=== PATIENT | female | born 1990 | race Caucasian/White ===

== ENCOUNTER 2017-10-03 10:35 | Emergency (ER) | payer OTHER ==
--- NOTE | 2017-10-03 11:03 | UC ---
Throat Pain/Nasal Srinivas HPI - HPI Summary HPI Summary: 27 YO F WITH 8+ DAYS OF URI SX NOW WITH FRONTAL DESAI/FACIAL PAIN AND PRESSURE. YELLOW/GREEN RHINORRHEA. NO RECENT FEVER. POSITIVE B/L EAR PRESSURE. - History of Current Complaint Chief Complaint: UCRespiratory Stated Complaint: UPPER RESP COMP Time Seen by Provider: 10/03/17 10:55 Hx Obtained From: Patient Hx Last Menstrual Period: DOES NOT HAVE REG PERIODS HAS MIRENA IUD Onset/Duration: Lasting Days Severity: Moderate Cough: Nonproductive Associated Signs & Symptoms: Negative: Wheezing - Epiglottits Risk Factors Epiglottis Risk Factors: Negative - Allergies/Home Medications Allergies/Adverse Reactions: Allergies Allergy/AdvReac Type Severity Reaction Status Date / Time latex Allergy Rash Verified 10/03/17 11:00 Home Medications: Home Medications Etonogestrel [Nexplanon] 1 imp ONCE 10/03/17 [History Confirmed 10/03/17] PMH/Surg Hx/FS Hx/Imm Hx Previously Healthy: Yes - Surgical History Surgical History: Yes Surgery Procedure, Year, and Place: WISDOM TEETH REMOVED-GAS. \TONSILLECTOMY - Family History Known Family History: Positive: None - Social History Alcohol Use: Rare Substance Use Type: None Smoking Status (MU): Current Every Day Smoker Type: Cigarettes Amount Used/How Often: 1/2 PPD Length of Time of Smoking/Using Tobacco: APPROX 4 YRS. Have You Smoked in the Last Year: Yes Review of Systems Constitutional: Negative Skin: Negative Eyes: Negative ENT: Ear Ache, Nasal Discharge, Sinus Congestion, Sinus Pain/Tenderness Cardiovascular: Negative Gastrointestinal: Negative Genitourinary: Negative Motor: Negative Neurovascular: Negative Musculoskeletal: Negative Neurological: Negative Psychological: Negative Is Patient Immunocompromised?: No All Other Systems Reviewed And Are Negative: Yes Physical Exam Triage Information Reviewed: Yes Appearance: Well-Appearing Vital Signs Reviewed: Yes Eye Exam: Normal ENT: Positive: Nasal congestion, TMs normal, Sinus tenderness Dental Exam: Normal Neck exam: Normal Respiratory Exam: Normal Cardiovascular Exam: Normal Musculoskeletal Exam: Normal Neurological Exam: Normal Psychological Exam: Normal Skin Exam: Normal Throat Pain/Nasal Course/Dx - Course Course Of Treatment: DISCUSSED VIRAL VERSES BACTERIAL INFECTION AND THE ROLE OF ANTIBIOTICS. THIS INFECTION REMINDS THE PATIENT OF PRIOR SINUS INFECTIONS AND PREFERS TO BE ON AN ANTIBIOTIC AT THIS TIME. F/U PMD; RECHECK SOONER IF WORSE. - Differential Dx/Diagnosis Provider Diagnoses: SINUSITIS Discharge - Sign-Out/Discharge Documenting (check all that apply): Patient Departure - Discharge Plan Condition: Stable Disposition: HOME Prescriptions: Amoxicillin/Clavulanate TAB* [Augmentin TAB 875*] 875 mg PO BID #20 tab Patient Education Materials: Sinusitis (ED) Referrals: Lencho Zuniga MD [Primary Care Provider] - Additional Instructions: FOLLOW UP WITH YOUR DOCTOR. GET RECHECKED FOR ANY WORSENING OF YOUR CONDITION OR QUESTIONS OR CONCERNS. - Billing Disposition and Condition Condition: STABLE Disposition: Home
[2017-10-03 11:09] VITALS: BP 106/72
== END 2017-10-03 11:12 | disposition home or self-care (01) ==
LOC: UCCORT 10:35
DX: J32.9 Chronic sinusitis, unspecified (principal); F17.210 Nicotine dependence, cigarettes, uncomplicated
CPT/HCPCS: 99212; G0463